=== PATIENT | female | born 1960 | race Two or more races ===

== ENCOUNTER 2019-06-08 23:56 | Emergency (ER) | payer BC, OTHER ==
[~2019-06-08] VITALS: Ht 162.6 cm; Wt 49.9 kg
[2019-06-09 02:45] VITALS: BP 117/61
== END 2019-06-09 02:35 | disposition home or self-care (01) ==
LOC: EDBD 23:56 → ER 06-09
DX: S01.81XA Laceration without foreign body of other part of head, initial encounter (principal); W19.XXXA Unspecified fall, initial encounter; Y93.89 Activity, other specified; Y99.8 Other external cause status; Y92.89 Other specified places as the place of occurrence of the external cause